=== PATIENT | female | born 1935 | race Caucasian/White ===

== ENCOUNTER → 2016-08-26 | Outpatient (CLI) | payer MEDICARE, OTHER ==
[~2016-08-26] MED LIST: ASPI81TA2 PO; BUSP10TA3 PO; CALC-52 PO; DOXA1TAB PO; FEXO180T94 PO; FISH1CAP2 PO; MULT-57 PO; NIAC50TA4 PO; SERT25TA5 PO; TRIA1TAB PO
== END ==
LOC: WC.BC 10:48
DX: Z12.31 Encounter for screening mammogram for malignant neoplasm of breast (principal); N64.59 Other signs and symptoms in breast
CPT/HCPCS: 77063; G0202